=== PATIENT | male | born 1935 ===

== ENCOUNTER 2024-12-09 15:48 | Emergency (ER) | payer MEDICARE, OTHER ==
[2024-12-09] MEDS ORDERED: Ondansetron PF 4 MG/2 ML Vial ONE (16:08)
[2024-12-09 16:40] LABS: #Basophils 0.04 10x3/uL (0.0-0.2); #Eosinophils 0.37 10x3/uL (0.0-0.7); #Monocytes 0.66 10x3/uL (0.11-0.59); #Neutrophils 2.98 10x3/uL (1.40-6.50); %Basophils 0.7 % (0.0-1.0); %Eosinophils 6.2 % (0.0-10.0); %Lymphocytes 32.0 % (21.0-51.0); %Monocytes 11.1 % (0.0-10.0); %Neutrophils 49.8 % (42.0-75.0); Hematocrit 35.7 % (42.0-52.0); Hemoglobin 11.7 g/dL (14.0-18.0); Mean Corpuscular Hemoglobin 29.6 pg (27.0-31.0); Mean Corpuscular Volume 90.4 fL (78.0-98.0); Platelet Count 188 10x3/uL (130-400); Red Blood Cell (RBC) Count 3.95 mill/uL (4.70-6.10); White Blood Cell (WBC) Count 5.97 10x3/uL (4.8-10.8)
[2024-12-09 17:10] LABS: ALT (SGPT) 12 U/L (Less than 45); AST (SGOT) 27 U/L (11-34); Albumin 3.4 g/dL (3.1-4.5); Alkaline Phosphatase 80 U/L (40-110); Anion Gap 13 mmol/L (10-20); BUN (Urea Nitrogen) 20 mg/dL (8.4-25.7); Bilirubin, Total 0.3 mg/dL (0.3-1.2); Calc. Creatinine Clearance 0 mL/min (70-130); Calcium 9.0 mg/dL (7.8-10.44); Carbon Dioxide 29 mmol/L (23-31); Chloride 103 mmol/L (98-107); Globulin 3.4 g/dL (2.4-3.5); Glucose 102 mg/dL (83-110); Magnesium 1.9 mg/dL (1.6-2.6); Potassium 4.0 mmol/L (3.5-5.1); Sodium 141 mmol/L (136-145)
[2024-12-09] MEDS ORDERED: Famotidine/PF 20 mg/2ml Vial ONE (18:11)
== END 2024-12-09 22:05 ==
LOC: ERS 15:48
DX: S70.02XA Contusion of left hip, initial encounter (principal); N18.9 Chronic kidney disease, unspecified; N17.9 Acute kidney failure, unspecified; K21.9 Gastro-esophageal reflux disease without esophagitis; Z55.6 Problems related to health literacy; W19.XXXA Unspecified fall, initial encounter
CPT/HCPCS: 70450; 71045; 72125; 72170; 72192; 73502; 80053; 83735; 85025; 93005; 96374; 96375; 96376; 99284; J1308; J2270; J2272; J2405; J3010